=== PATIENT | female | born 1980 | race Hispanic/Latino ===

== ENCOUNTER 2022-03-24 12:15 | Emergency (ER) | payer BC ==
[2022-03-24 14:01] LABS: Absolute Lymphocytes (CBC) 2.9 K/uL (0.7-4.9); Hematocrit 42.8 % (36.0-45.0); Lymphocytes % 33.3 % (15.3-44.8); MPV 10.6 fL (7.6-11.3); RBC Red Blood Cell Count 4.92 M/uL (3.86-4.86)
[2022-03-24 14:14] LABS: Potassium 2.4 mmol/L (3.5-5.1)
[2022-03-24] MEDS ORDERED: POTASSIUM 25 MEQ EFFERV TAB ONE ×2 (14:33→17:05)
[2022-03-24] MEDS ORDERED: KCL 20 MEQ/100 mL IVPB 100 ML IV ONE (14:33)
[2022-03-24] MEDS ORDERED: NA CHLORIDE 0.9% 500 ML ONE (14:42)
--- NOTE | 2022-03-24 17:17 | ER ---
Nurse's Notes [facility] Name: Nereyda Porras Age: 42 yrs Sex: Female : 1980 Arrival Date: 03/24/2022 Time: 12:18 Bed 20 Private MD: Jonas Aguero E Diagnosis: Hypokalemia Presentation: 03/24 12:36 Chief complaint: Patient states: "I went to my regular doctor yesterday and had labs ss drawn. They called me 30 minutes ago and told me to come to the ER because my potassium was really low.". Coronavirus screen: Client denies travel out of the [place] in the last 14 days. Ebola Screen: Patient denies exposure to infectious person. Patient denies travel to an Ebola-affected area in the 21 days before illness onset. Initial Sepsis Screen: Does the patient meet any 2 criteria? No. Patient's initial sepsis screen is negative. Does the patient have a suspected source of infection? No. Patient's initial sepsis screen is negative. Risk Assessment: Do you want to hurt yourself or someone else? Patient reports no desire to harm self or others. Onset of symptoms is unknown. 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 LMP was a year ago before procedure ss Historical: - Allergies: 12:37 No Known Allergies; ss - Home Meds: 12:37 lisinopril 10 mg Oral tab 1 tab once daily [Active]; ss - PMHx: 12:37 Hypertensive disorder; ss - PSHx: 12:37 section; Cholecystectomy; Uterine ablation; ss - Immunization history:: Client reports receiving the 2nd dose of the Covid vaccine. - Social history:: Smoking status: Patient denies any tobacco usage or history of. Screenin:40 Abuse screen: Denies threats or abuse. Denies injuries from another. Nutritional jh6 screening: No deficits noted. 12:40 Tuberculosis screening: No symptoms or risk factors identified. Fall Risk None jh6 identified. Assessment: 12:40 General: Appears in no apparent distress. Behavior is calm, cooperative. jh6 12:40 Pain: Denies pain. jh6 13:00 General: pt received a call from lab stating that her potassium level was low and that jh6 she needed to come to the er for recheck and possible iv potassium. pt states that she has had low potassium levels in the past and is supposed to take replacement but hasn't taken them in some time. . 15:00 Reassessment: No changes from previously documented assessment. Patient is alert, 6 oriented x 3, equal unlabored respirations, skin warm/dry/pink. Patient denies pain at this time. 17:00 Reassessment: No changes from previously documented assessment. Patient is alert, jh6 oriented x 3, equal unlabored respirations, skin warm/dry/pink. Patient denies pain at this time. Vital Signs: 12:36 Pulse 77; Resp 15; Temp 98.1(TE); Pulse Ox 98% on R/A; Weight 93.44 kg; Height 5 ft. 2 ss in. (157.48 cm); Pain 0/10; 12:39 BP 135 / 78; ss 14:00 BP 132 / 76; Pulse 72; Resp 16; Temp 97.6; Pulse Ox 100% ; Pain 0/10; jh6 16:00 BP 130 / 77; Pulse 76; Resp 17; Pulse Ox 100% ; Pain 0/10; jh6 17:00 BP 127 / 74; Pulse 74; Resp 18; Pulse Ox 100% ; Pain 0/10; jh6 12:36 Body Mass Index 37.68 (93.44 kg, 157.48 cm) ED Course: 12:18 Patient arrived in ED. rg4 12:18 Jonas Aguero MD is Private Physician. rg4 12:37 Triage completed. ss 12:37 Arm band placed on left wrist. 12:43 Tyrel Venegas is PHCP. jl9 12:43 James Segura DO is Attending Physician. jl9 12:45 Bed in low position. Call light in reach. Side rails up X 1. jh6 13:52 Inserted saline lock: 20 gauge in right antecubital area, using aseptic technique. kc6 Blood collected. 13:52 CBC with Diff Sent. kc6 13:52 BMP Sent. kc6 14:05 Lisa Herrera, ARI is Primary Nurse. 6 15:42 PHCP role handed off by Tyrel Venegas cp 15:42 Chavez Fu PA is PHCP. cp 17:26 IV discontinued, intact, bleeding controlled, No redness/swelling at site. Pressure 6 dressing applied. 17:28 No provider procedures requiring assistance completed. 6 Administered Medications: 14:37 Drug: Potassium Chloride 20 mEq Route: IV; Rate: per protocol; Site: right antecubital; jh6 17:27 Follow up: Response: No adverse reaction 6 14:38 Drug: Potassium Effervescent Tablet 50 mEq Route: PO; jh6 17:27 Follow up: Response: No adverse reaction 6 16:52 Drug: Potassium Effervescent Tablet 50 mEq Route: PO; jh6 17:27 Follow up: Response: No adverse reaction 6 Medication: 17:28 VIS not applicable for this client. 6 Outcome: 17:16 Discharge ordered by . abraham 17:28 Discharged to home ambulatory. 6 17:28 Condition: good 17:28 Discharge instructions given to patient, Instructed on discharge instructions, follow up and referral plans. Demonstrated understanding of instructions, follow-up care. 17:28 Patient left the ED. [facility] Signatures: Isabella Sullivan RN RN Chavez Stevens PA PA cp Garcia, Rubi rg4 Lisa Herrera RN RN 6 Tyrel Venegas9 Litzy Esquivel6
--- NOTE | 2022-03-24 17:17 | EDPHYS ---
Physician Documentation [facility] Name: Nereyda Porras Age: 42 yrs Sex: Female : 1980 Arrival Date: 03/24/2022 Time: 12:18 Bed 20 Private MD: Jonas Aguero E ED Physician James Segura HPI: 03/24 12:48 This 42 yrs old Female presents to ER via Ambulatory with complaints of jl9 Abnormal Lab Results. Patient reports that her PCP called her after getting routine labs and told her to come to the ED due to low potassium. Patient asymptomatic. . 12:48 Onset: The symptoms/episode began/occurred today. Associated signs and symptoms: The jl9 patient has no apparent associated signs or symptoms. Modifying factors: The patient symptoms are alleviated by nothing, the patient symptoms are aggravated by nothing. 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 LMP was a year ago before procedure ss Historical: - Allergies: 12:37 No Known Allergies; ss - Home Meds: 12:37 lisinopril 10 mg Oral tab 1 tab once daily [Active]; ss - PMHx: 12:37 Hypertensive disorder; ss - PSHx: 12:37 section; Cholecystectomy; Uterine ablation; ss - Immunization history:: Client reports receiving the 2nd dose of the Covid vaccine. - Social history:: Smoking status: Patient denies any tobacco usage or history of. ROS: 12:49 Constitutional: Negative for fever, chills, and weight loss, Eyes: Negative for injury, jl9 pain, redness, and discharge, ENT: Negative for injury, pain, and discharge, Neck: Negative for injury, pain, and swelling, Cardiovascular: Negative for chest pain, palpitations, and edema, Respiratory: Negative for shortness of breath, cough, wheezing, and pleuritic chest pain, Abdomen/GI: Negative for abdominal pain, nausea, vomiting, diarrhea, and constipation, Back: Negative for injury and pain, : Negative for injury, bleeding, discharge, and swelling, MS/Extremity: Negative for injury and deformity, Skin: Negative for injury, rash, and discoloration, Neuro: Negative for headache, weakness, numbness, tingling, and seizure, Psych: Negative for depression, anxiety, suicide ideation, homicidal ideation, and hallucinations, Allergy/Immunology: Negative for hives, rash, and allergies, Endocrine: Negative for neck swelling, polydipsia, polyuria, polyphagia, and marked weight changes, Hematologic/Lymphatic: Negative for swollen nodes, abnormal bleeding, and unusual bruising. Exam: 12:49 Constitutional: This is a well developed, well nourished patient who is awake, alert, jl9 and in no acute distress. Head/Face: Normocephalic, atraumatic. Eyes: Pupils equal round and reactive to light, extra-ocular motions intact. Lids and lashes normal. Conjunctiva and sclera are non-icteric and not injected. Cornea within normal limits. Periorbital areas with no swelling, redness, or edema. ENT: Mucous membranes moist. Neck: Trachea midline, no thyromegaly or masses palpated, and no cervical lymphadenopathy. Supple, full range of motion without nuchal rigidity, or vertebral point tenderness. No Meningismus. Chest/axilla: Normal chest wall appearance and motion. Nontender with no deformity. No lesions are appreciated. Cardiovascular: Regular rate and rhythm with a normal S1 and S2. No gallops, murmurs, or rubs. Normal PMI, no JVD. No pulse deficits. Respiratory: Lungs have equal breath sounds bilaterally, clear to auscultation and percussion. No rales, rhonchi or wheezes noted. No increased work of breathing, no retractions or nasal flaring. Abdomen/GI: Soft, non-tender, with normal bowel sounds. No distension or tympany. No guarding or rebound. No evidence of tenderness throughout. Back: No spinal tenderness. No costovertebral tenderness. Full range of motion. Skin: Warm, dry with normal turgor. Normal color with no rashes, no lesions, and no evidence of cellulitis. MS/ Extremity: Pulses equal, no cyanosis. Neurovascular intact. Full, normal range of motion. Neuro: Awake and alert, GCS 15, oriented to person, place, time, and situation. Cranial nerves II-XII grossly intact. Motor strength 5/5 in all extremities. Sensory grossly intact. Cerebellar exam normal. Normal gait. Psych: Awake, alert, with orientation to person, place and time. Behavior, mood, and affect are within normal limits. 17:15 ECG was reviewed by the Attending Physician. cp Vital Signs: 12:36 Pulse 77; Resp 15; Temp 98.1(TE); Pulse Ox 98% on R/A; Weight 93.44 kg; Height 5 ft. 2 ss in. (157.48 cm); Pain 0/10; 12:39 BP 135 / 78; ss 14:00 BP 132 / 76; Pulse 72; Resp 16; Temp 97.6; Pulse Ox 100% ; Pain 0/10; jh6 16:00 BP 130 / 77; Pulse 76; Resp 17; Pulse Ox 100% ; Pain 0/10; jh6 17:00 BP 127 / 74; Pulse 74; Resp 18; Pulse Ox 100% ; Pain 0/10; jh6 12:36 Body Mass Index 37.68 (93.44 kg, 157.48 cm) MDM: 12:43 Patient medically screened. 9 12:49 Data reviewed: vital signs, nurses notes. 9 17:15 Counseling: I had a detailed discussion with the patient and/or guardian regarding: the cp historical points, exam findings, and any diagnostic results supporting the discharge/admit diagnosis, lab results, radiology results, the need for outpatient follow up, a family practitioner, to return to the emergency department if symptoms worsen or persist or if there are any questions or concerns that arise at home. 17:15 Response to treatment: the patient's symptoms have markedly improved after treatment, and as a result, I will discharge patient. 03/24 12:44 Order name: BMP; Complete Time: 14:23 [facility] 03/24 16:10 Interpretation: Normal except: K 2.4; ANION GAP 7.4; GLUC 107. cp 03/24 12:44 Order name: CBC with Diff; Complete Time: 14:23 [facility] 03/24 14:21 Order name: Magnesium; Complete Time: 14:59 [facility] 03/24 16:11 Order name: Potassium: redraw after administration of potassium; Complete Time: 16:48 cp 03/24 12:44 Order name: EKG; Complete Time: 12:44 [facility] 03/24 12:44 Order name: IV Saline Lock; Complete Time: 13:52 [facility] EC:15 Rate is 62 beats/min. Rhythm is regular. DC interval is normal. QRS interval is normal. cp QT interval is normal. T waves are Inverted in lead aVR. Interpreted by me. Reviewed by me. Administered Medications: 14:37 Drug: Potassium Chloride 20 mEq Route: IV; Rate: per protocol; Site: right antecubital; 6 17:27 Follow up: Response: No adverse reaction jh6 14:38 Drug: Potassium Effervescent Tablet 50 mEq Route: PO; jh6 17:27 Follow up: Response: No adverse reaction jh6 16:52 Drug: Potassium Effervescent Tablet 50 mEq Route: PO; jh6 17:27 Follow up: Response: No adverse reaction 6 Disposition: 18:11 Co-signature as Attending Physician, James Segura DO I was immediately available on-site ms3 in the emergency department for consultation in the care of the patient.. Disposition Summary: 03/24/22 17:16 Discharge Ordered Location: Home cp Problem: new cp Symptoms: have improved cp Condition: Stable cp Diagnosis - Hypokalemia cp Followup: cp - With: Private Physician - When: 2 - 3 days - Reason: Recheck today's complaints Discharge Instructions: - Discharge Summary Sheet cp - Potassium Content of Foods cp - Hypokalemia cp Forms: - Medication Reconciliation Form cp - Thank You Letter cp - Antibiotic Education cp - Prescription Opioid Use cp Prescriptions: - Potassium Chloride 20 meq Oral Packet - take 1 packet by ORAL route once daily for 5 days 1 packet in 6 (six) ounces of cp water or juice; Take after meal; 5 packet; Refills: 0, Product Selection Permitted Signatures: Dispatcher [employer] Isabella Morris RN RN Chavez Stevens PA PA cp Sims, Marcus, DO DO ms3 Lisa Herrera RN RN jh6 Tyrel Venegas jl9
[2022-03-24 18:11] VITALS: TEMP 97.6; O2SAT 100
[2022-03-24 18:15] VITALS: BP 127/74
--- NOTE | 2022-03-25 13:59 | EKG ---
Test Date: 2022-03-24 Test Time: 17:13:36 Fancy Stitcher: QUIN MEASUREMENT RESULTS: Intervals: Rate: 62 TN: 180 QRSD: 96 QT: 452 QTc: 458 Finley: P: 36 TN: 180 QRS: 33 T: 43 INTERPRETIVE STATEMENTS: Normal sinus rhythm Normal ECG No previous ECG available for comparison Electronically Signed On 03-25-22 13:57:37 CDT by Gold Plascencia
== END 2022-03-24 17:28 | disposition home or self-care (01) ==
LOC: ER 12:15
DX: E87.6 Hypokalemia (principal); I10 Essential (primary) hypertension
CPT/HCPCS: 93005; 85025; 80048; 36415; 83735; 84132; 96374; 99284; J3480; J7040

== ENCOUNTER 2022-04-03 08:33 | Emergency (ER) | payer BC ==
[2022-04-03 09:13] LABS: Urine Blood 1+ (Negative); Urine Glucose Negative (Negative); Urine Protein 2+ (Negative); Urine Specific Gravity >=1.030 (1.005-1.030)
[2022-04-03 09:17] LABS: Absolute Lymphocytes (CBC) 2.5 K/uL (0.7-4.9); Hematocrit 48.5 % (36.0-45.0); Lymphocytes % 13.7 % (15.3-44.8); MCV 85.3 fL (80-100); MPV 10.6 fL (7.6-11.3); RBC Red Blood Cell Count 5.69 M/uL (3.86-4.86)
[2022-04-03] MEDS ORDERED: MORPHINE 2 MG/ML SYR ONE (09:26)
[2022-04-03] MEDS ORDERED: ONDANSETRON 4 MG/2 ML VIAL ONE (09:26)
[2022-04-03] MEDS ORDERED: FAMOTIDINE 20 MG/2 ML VIAL IV ONE (09:26)
--- NOTE | 2022-04-03 09:32 | RAD REPORT ---
EXAM DESCRIPTION: CTAbdomen Pelvis W Contrast - 04/03/2022 9:18 am CLINICAL HISTORY: Abdominal pain. asfdi COMPARISON: No comparisons TECHNIQUE: Biphasic CT imaging of the abdomen and pelvis was performed with 100 ml non-ionic IV cont rast. All CT scans are performed using dose optimization technique as appropriate and may include automated exposure control or mA/KV adjustment according to patient size. FINDINGS: The lung bases are clear. Cholecystectomy. The liver, spleen, pancreas, right adrenal gland and kidneys are within normal limits. 13 mm nonspeci fic left adrenal lesion. Multiple thickened and inflamed small bowel are present throughout the abdomen. Mild free fluid is pr esent in the abdomen. No bowel obstruction, free air or abscess. The appendix is normal. No evidence of significant lymphadenopathy. No suspicious bony findings. Cystic structures are seen in the adnexal regions which may represent ov lilibeth cysts, incomplete evaluation by CT. IMPRESSION: Mild ascites is present with multiple thickened and inflamed small bowel loops present t hroughout the abdomen. This may represent nonspecific enteritis or inflammatory bowel disease. Bilateral cystic adnexal cyst lesions are present, incompletely assessed. Nonemergent follow-up pelvi c sonography would be advised.
[2022-04-03 09:34] LABS: Albumin 3.5 g/dL (3.4-5.0); Bilirubin Total 0.6 mg/dL (0.2-1.0); Potassium 3.1 mmol/L (3.5-5.1); Protein, Total 8.1 g/dL (6.4-8.2)
[2022-04-03] MEDS ORDERED: NA CHLORIDE 0.9% 250 ML ONE (10:03)
[2022-04-03] MEDS ORDERED: AZITHROMYCIN 500 MG INJ IVPB ONE (10:03)
--- NOTE | 2022-04-03 11:10 | ER ---
Nurse's Notes [facility] Name: Nereyda Porras Age: 42 yrs Sex: Female : 1980 Arrival Date: 04/03/2022 Time: 08:36 Bed 11 Private MD: Diagnosis: Abdominal pain, unspecified Presentation: 04/03 08:40 Chief complaint: Patient states: Mid upper abdominal pain radiates to left, N/V/D x 1 jl7 day. Pt reports "I thought I was constipated so I took a laxative and now it's like watery but it still feels kind of trapped.". Coronavirus screen: At this time, the client does not indicate any symptoms associated with coronavirus-19. Ebola Screen: No symptoms or risks identified at this time. Initial Sepsis Screen: Does the patient meet any 2 criteria? No. Patient's initial sepsis screen is negative. Does the patient have a suspected source of infection? No. Patient's initial sepsis screen is negative. Risk Assessment: Do you want to hurt yourself or someone else? Patient reports no desire to harm self or others. Onset of symptoms was April 02, 2022. Care prior to arrival: None. 08:40 Method Of Arrival: Ambulatory jl7 08:40 Acuity: HARRY 3 jl7 Triage Assessment: 08:42 General: Appears in no apparent distress. uncomfortable, Behavior is calm, cooperative, jl7 appropriate for age. Pain: Complains of pain in epigastric area Pain radiates to left upper quadrant. GI: Reports diarrhea, nausea, vomiting. 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 - Social history:: Smoking status: Patient denies any tobacco usage or history of. Screenin:21 Abuse screen: Denies threats or abuse. Denies injuries from another. Nutritional ss screening: No deficits noted. Tuberculosis screening: Never had TB. Fall Risk None identified. Assessment: 11:21 Reassessment: Patient appears in no apparent distress at this time. Patient and/or ss family updated on plan of care and expected duration. Pain level reassessed. Patient is alert, oriented x 3, equal unlabored respirations, skin warm/dry/pink. Patient states feeling better. Patient states symptoms have improved. Pain: Complains of pain in left upper quadrant and abdomen and epigastric area Pain currently is 4 out of 10 on a pain scale. 11:25 Reassessment: Pt will be discharged once medication is done infusing. jl7 Vital Signs: 08:40 BP 143 / 105; Pulse 112; Resp 19; Temp 98.1; Pulse Ox 100% ; Weight 93.44 kg; Height 5 jl7 ft. 2 in. (157.48 cm); Pain 10/10; 10:30 BP 126 / 94; Pulse 84; Resp 15; Pulse Ox 98% ; jl7 11:15 BP 119 / 92; Pulse 75; Resp 15; Pulse Ox 99% ; jl7 08:40 Body Mass Index 37.68 (93.44 kg, 157.48 cm) jl7 ED Course: 08:36 Patient arrived in ED. rg4 08:39 Tyrel Venegas is PHCP. jl9 08:39 Chavez Oneal MD is Attending Physician. jl9 08:42 Triage completed. jl7 08:42 Arm band placed on right wrist. jl7 09:05 Missed attempt(s): 20 gauge in right forearm. Bleeding controlled, band aid applied, jl7 catheter tip intact. 09:07 Initial lab(s) drawn, by nj, sent to lab. Inserted saline lock: 20 gauge in left jl7 antecubital area, using aseptic technique. Blood collected. 09:12 Roge Ortiz, ARI is Primary Nurse. jl7 09:20 CT Abd/Pelvis - IV Contrast Only In Process Unspecified. EDMS 10:28 First set of blood cultures drawn by me. jl7 10:36 Second set of blood cultures drawn by me. jl7 11:21 Patient has correct armband on for positive identification. Bed in low position. ss 11:21 No provider procedures requiring assistance completed. ss 11:49 IV discontinued, intact, bleeding controlled, No redness/swelling at site. Pressure jl7 dressing applied. Administered Medications: 09:26 Drug: Zofran (Ondansetron) 4 mg Route: IVP; Site: left antecubital; jl7 11:24 Follow up: Response: No adverse reaction ss 09:28 Drug: Pepcid (famotidine) 20 mg Route: IVP; Site: left antecubital; jl7 11:22 Follow up: Response: No adverse reaction ss 09:30 Drug: morphine 2 mg Route: IVP; Infused Over: 4 mins; Site: left antecubital; jl7 11:23 Follow up: Response: No adverse reaction; Marked relief of symptoms; Pain is decreased ss 10:41 Drug: AZITHromycin 500 mg Route: IVPB; Infused Over: 1 hrs; Site: left antecubital; jl7 11:30 Follow up: Response: No adverse reaction jl7 11:49 Follow up: IV Status: Completed infusion ss 10:43 Drug: Potassium Effervescent Tablet 50 mEq Route: PO; ss 11:22 Follow up: Response: No adverse reaction ss 11:49 Drug: Bentyl (dicyclomine) 20 mg Route: PO; jl7 11:49 Follow up: Response: Medication administered at discharge. jl7 11:49 Follow up: Response: Medication administered at discharge. jl7 Medication: 11:21 VIS not applicable for this client. ss Outcome: 11:09 Discharge ordered by MD. jl9 11:21 Condition: improved ss 11:21 Discharge instructions given to patient, Instructed on discharge instructions, follow up and referral plans. medication usage, Demonstrated understanding of instructions, follow-up care, medications, Prescriptions given X 2. 11:49 Discharged to home ambulatory, with family. jl7 11:50 Patient left the ED. jl7 Signatures: Dispatcher [employer] EDMS Isabella Sullivan RN RN Constanza Luz Jahala, RN RN Tyrel Shaffer jl9 Corrections: (The following items were deleted from the chart) 08:46 08:40 Chief complaint: Patient states: Mid upper abdominal pain radiates to left, N/V/D jl7 x 1 day jl7 11:22 11:21 Patient did not have IV access during this emergency room visit. ss ss
--- NOTE | 2022-04-03 11:10 | EDPHYS ---
Physician Documentation [facility] Name: Nereyda Porras Age: 42 yrs Sex: Female : 1980 Arrival Date: 04/03/2022 Time: 08:36 Bed 11 Private MD: GREGORY Physician Chavez Oneal HPI: 04/03 08:48 This 42 yrs old Female presents to ER via Ambulatory with complaints of jl9 Abdominal Pain. Patient reports epgastric abdominal pain since yesterday. . 08:48 The patient presents with abdominal pain in the epigastric area. Onset: The jl9 symptoms/episode began/occurred yesterday. The symptoms do not radiate. Associated signs and symptoms: Pertinent positives: nausea. The symptoms are described as crampy. Modifying factors: The symptoms are alleviated by nothing, the symptoms are aggravated by nothing. The patient has not experienced similar symptoms in the past. 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 - Social history:: Smoking status: Patient denies any tobacco usage or history of. ROS: 08:49 Constitutional: Negative for fever, chills, and weight loss, Eyes: Negative for injury, jl9 pain, redness, and discharge, ENT: Negative for injury, pain, and discharge, Neck: Negative for injury, pain, and swelling, Cardiovascular: Negative for chest pain, palpitations, and edema, Respiratory: Negative for shortness of breath, cough, wheezing, and pleuritic chest pain. 08:49 Back: Negative for injury and pain, : Negative for injury, bleeding, discharge, and swelling, MS/Extremity: Negative for injury and deformity, Skin: Negative for injury, rash, and discoloration, Neuro: Negative for headache, weakness, numbness, tingling, and seizure, Psych: Negative for depression, anxiety, suicide ideation, homicidal ideation, and hallucinations, Allergy/Immunology: Negative for hives, rash, and allergies, Endocrine: Negative for neck swelling, polydipsia, polyuria, polyphagia, and marked weight changes, Hematologic/Lymphatic: Negative for swollen nodes, abnormal bleeding, and unusual bruising. 08:49 Abdomen/GI: Positive for abdominal pain, nausea. Exam: 08:50 Constitutional: This is a well developed, well nourished patient who is awake, alert, jl9 and in no acute distress. Head/Face: Normocephalic, atraumatic. Eyes: Pupils equal round and reactive to light, extra-ocular motions intact. Lids and lashes normal. Conjunctiva and sclera are non-icteric and not injected. Cornea within normal limits. Periorbital areas with no swelling, redness, or edema. ENT: Mucous membranes moist. Neck: Trachea midline, no thyromegaly or masses palpated, and no cervical lymphadenopathy. Supple, full range of motion without nuchal rigidity, or vertebral point tenderness. No Meningismus. Chest/axilla: Normal chest wall appearance and motion. Nontender with no deformity. No lesions are appreciated. Cardiovascular: Regular rate and rhythm with a normal S1 and S2. No gallops, murmurs, or rubs. Normal PMI, no JVD. No pulse deficits. Respiratory: Lungs have equal breath sounds bilaterally, clear to auscultation and percussion. No rales, rhonchi or wheezes noted. No increased work of breathing, no retractions or nasal flaring. 08:50 Back: No spinal tenderness. No costovertebral tenderness. Full range of motion. Skin: Warm, dry with normal turgor. Normal color with no rashes, no lesions, and no evidence of cellulitis. MS/ Extremity: Pulses equal, no cyanosis. Neurovascular intact. Full, normal range of motion. Neuro: Awake and alert, GCS 15, oriented to person, place, time, and situation. Cranial nerves II-XII grossly intact. Motor strength 5/5 in all extremities. Sensory grossly intact. Cerebellar exam normal. Normal gait. Psych: Awake, alert, with orientation to person, place and time. Behavior, mood, and affect are within normal limits. 08:50 Abdomen/GI: Inspection: abdomen appears normal, Bowel sounds: normal, Palpation: mild abdominal tenderness, in the epigastric area. Vital Signs: 08:40 BP 143 / 105; Pulse 112; Resp 19; Temp 98.1; Pulse Ox 100% ; Weight 93.44 kg; Height 5 7 ft. 2 in. (157.48 cm); Pain 10/10; 10:30 BP 126 / 94; Pulse 84; Resp 15; Pulse Ox 98% ; jl7 11:15 BP 119 / 92; Pulse 75; Resp 15; Pulse Ox 99% ; jl7 08:40 Body Mass Index 37.68 (93.44 kg, 157.48 cm) MDM: 08:39 Patient medically screened. 11:08 Data reviewed: vital signs, nurses notes. Counseling: I had a detailed discussion with [facility] the patient and/or guardian regarding: the historical points, exam findings, and any diagnostic results supporting the discharge/admit diagnosis, lab results, radiology results, the need for outpatient follow up. 11:08 Response to treatment: the patient's symptoms have markedly improved after treatment. 04/03 08:48 Order name: CBC with Diff; Complete Time: 09:37 04/03 08:48 Order name: CMP; Complete Time: 09:37 04/03 08:48 Order name: Lipase; Complete Time: 09:37 04/03 09:13 Order name: Urine Dipstick-Ancillary; Complete Time: 09:37 EDMS 04/03 09:40 Order name: Lactate; Complete Time: 11:07 04/03 09:40 Order name: Blood Culture Adult (2) 04/03 08:48 Order name: CT Abd/Pelvis - IV Contrast Only; Complete Time: 09:37 04/03 08:48 Order name: IV Saline Lock; Complete Time: 09:05 04/03 08:48 Order name: Labs collected and sent; Complete Time: 09:05 04/03 08:48 Order name: Urine Dipstick-Ancillary (obtain specimen); Complete Time: 09:[address] [facility] Administered Medications: 09:26 Drug: Zofran (Ondansetron) 4 mg Route: IVP; Site: left antecubital; 11:24 Follow up: Response: No adverse reaction ss 09:28 Drug: Pepcid (famotidine) 20 mg Route: IVP; Site: left antecubital; jl7 11:22 Follow up: Response: No adverse reaction ss 09:30 Drug: morphine 2 mg Route: IVP; Infused Over: 4 mins; Site: left antecubital; jl7 11:23 Follow up: Response: No adverse reaction; Marked relief of symptoms; Pain is decreased ss 10:41 Drug: AZITHromycin 500 mg Route: IVPB; Infused Over: 1 hrs; Site: left antecubital; jl7 11:30 Follow up: Response: No adverse reaction jl7 11:49 Follow up: IV Status: Completed infusion ss 10:43 Drug: Potassium Effervescent Tablet 50 mEq Route: PO; ss 11:22 Follow up: Response: No adverse reaction ss 11:49 Drug: Bentyl (dicyclomine) 20 mg Route: PO; jl7 11:49 Follow up: Response: Medication administered at discharge. jl7 11:49 Follow up: Response: Medication administered at discharge. jl7 Disposition Summary: 04/03/22 11:09 Discharge Ordered Location: Home jl9 Condition: Stable jl9 Diagnosis - Abdominal pain, unspecified jl9 Followup: jl9 - With: Private Physician - When: 1 - 2 days - Reason: Recheck today's complaints, Continuance of care, Re-evaluation by your physician Discharge Instructions: - Discharge Summary Sheet jl9 - Viral Gastroenteritis, Adult, [id number] jl9 - Abdominal Pain, Adult, [id number] jl9 Forms: - Medication Reconciliation Form jl9 - Thank You Letter jl9 - Antibiotic Education jl9 - Prescription Opioid Use jl9 Prescriptions: - azithromycin 500 mg Oral tablet - take 1 tablet by ORAL route once daily for 5 days; 5 tablet; Refills: 0, jl9 Product Selection Permitted - ondansetron 8 mg Oral tablet,disintegrating - take 1 tablet by ORAL route every 8 hours As needed; 12 tablet; Refills: 0, jl9 Product Selection Permitted - dicyclomine 20 mg Oral tablet - take 1 tablet by ORAL route 3 times per day As needed; 20 tablet; Refills: 0, jl9 Product Selection Permitted Signatures: Dispatcher [employer] Isabella Morris RN RN Roge Pierce RN RN vivian7 Tyrel Venegas jl9
[2022-04-03] MEDS ORDERED: DICYCLOMINE HCL 10 MG CAP ONE (11:56)
[2022-04-03 12:26] VITALS: BP 143/105; TEMP 98.1; O2SAT 100
== END 2022-04-03 11:50 | disposition home or self-care (01) ==
LOC: ER 08:33
DX: R10.816 Epigastric abdominal tenderness (principal); I10 Essential (primary) hypertension
CPT/HCPCS: 96365; 87040 ×2; 85025; 36415; 83605; 81003; 83690; 80053; 74177; 96375; 99284; Q9967; J0456; J2270; J7050; J2405

== ENCOUNTER → 2022-06-13 | Day surgery (SDC) | payer BC ==
[2011-12-04 23:24] VITALS: BP 138/80
--- NOTE | 2022-06-13 11:00 | RAD REPORT ---
EXAM DESCRIPTION: US - Breast Aspiration Inital - 06/13/2022 10:24 am CLINICAL HISTORY: Mass breast. COMPARISON: None. FINDINGS: The patient presents for ultrasound-guided breast biopsy. The procedure, risks and alterna tives were discussed with the patient in detail. After answering all questions, oral and written con sent were obtained. Time out procedure was performed. The patient had no contraindicated allergy or medication history. Preliminary imaging again identified the 12 mm 12 o'clock retroareolar mass in question. The skin wa s prepped and draped in the usual sterile fashion. Skin and deeper tissues were anesthetized with 1 percent lidocaine. Under direct sonographic visualization, the lidocaine needle puncture the outer ca psule of the mass. Upon injection of the lidocaine, the lidocaine was seen to score all within the coughlin bstance of this mass. Lidocaine needle was removed. A 20 gauge needle was then advanced into the [address] soft tissues. The mass in question had already diminished in size and changed shape indicating carissa kage of cystic content. Additional aspiration attempts cause further collapse of the mass. At the conclusion, there was no remnant concerning mass. The original mass in question is believed to be a complex cyst or cyst cluster. No core biopsy was performed. No localization clip placed. IMPRESSION: The 12 mm mass in the 12 o'clock retroareolar right breast collapsed on aspiration. No remnant mass or soft tissue component remained warranting core biopsy. Right breast sonography in 6 months could be performed to monitor for reaccumulation.
== END ==
LOC: DS 08:00
PROVIDERS: ATTEND Nurse Practitioner Women's Health
DX: R92.8 Other abnormal and inconclusive findings on diagnostic imaging of breast (principal)
CPT/HCPCS: 19000